=== PATIENT | female | born 1965 ===

== ENCOUNTER 2017-08-25 12:27 | Emergency (ER) | payer BC ==
[2017-08-25 12:52] VITALS: BMI 40.3
[2017-08-25 13:13] LABS: URINE APPEARANCE CLEAR (CLEAR); URINE BILIRUBIN NEGATIVE (NEGATIVE); URINE BLOOD MODERATE (NEGATIVE); URINE COLOR YELLOW (YELLOW); URINE GLUCOSE (UA) NEGATIVE (NEGATIVE); URINE LEUKOCYTE ESTERASE NEGATIVE Leu/uL (NEGATIVE); URINE NITRATE NEGATIVE (NEGATIVE); URINE PROTEIN TRACE mg/dL (<30 mg/dL); URINE UROBILINOGEN 0.2 E.U./dL (<1 E.U./dL)
[2017-08-25 13:36] LABS: URINE EPITHELIAL CELLS 0 - 2 /hpf (0-5); URINE WBC 0 - 2 /hpf (0-6)
[2017-08-25] MEDS ORDERED: Sodium Chloride 0.9% 1,000 ML IV STA (13:38)
--- NOTE | 2017-08-25 13:39 | ED PDOC ---
Arrival/HPI - General Chief Complaint: Female Genitourinary Time Seen by Provider: 08/25/17 12:55 Historian: Patient - History of Present Illness Narrative History of Present Illness (Text): 08/25/17 13:35 you were treated in the ED today for lower abdominal pain with nausea for 3 days otherwise without any vomiting/headache/dizziness/difficulty breathing/ chest pain/abdomen pain/numbness/tingling/loss of limb function/pain with urination. Time/Duration: Other (3 days) Symptom Course: Unchanged Quality: Aching Severity Level: 3 Activities at Onset: Rest Context: Sitting, Home Past Medical History - Provider Review Nursing Documentation Reviewed: Yes - Travel History Have you recently traveled outside [place] w/in the past 3 mons?: No - Past History Past History: No Previous - Infectious Disease Hx of Infectious Diseases: None - Tetanus Immunization Tetanus Immunization: Unknown - Cardiac Hx Cardiac Disorders: No Hx Pacemaker: No - Pulmonary Hx Asthma: Yes Hx Sleep Apnea: Yes - Neurological Hx Paralysis: No - Renal Hx Renal Disorder: Yes Hx Kidney Stones: Yes - Endocrine/Metabolic Hx Hypothyroidism: Yes - Hematological/Oncological Hx Blood Transfusions: Yes Hx Blood Transfusion Reaction: No - Musculoskeletal/Rheumatological Hx Musculoskeletal Disorders: Yes Hx Arthritis: Yes - Gastrointestinal Hx Constipation: Yes Hx Diarrhea: Yes - Psychiatric Hx Anxiety: Yes Hx Depression: Yes Hx Emotional Abuse: No Hx Panic Disorder: Yes Hx Physical Abuse: No Hx Substance Use: No - Surgical History Hx Section: Yes Hx Cholecystectomy: Yes Hx Orthopedic Surgery: Yes Other/Comment: Back fusion - Anesthesia Hx Anesthesia: Yes Hx Anesthesia Reactions: No Hx Malignant Hyperthermia: No - Suicidal Assessment Feels Threatened In Home Enviroment: No Family/Social History - Physician Review Nursing Documentation Reviewed: Yes Family/Social History: No Known Family HX Smoking Status: Former Smoker Hx Alcohol Use: Yes (SOCIAL) Hx Substance Use: No Hx Substance Use Treatment: No Allergies/Home Meds Allergies/Adverse Reactions: Allergies No Known Allergies Allergy (Verified 08/25/17 12:59) Home Medications: Home Meds Medication Instructions Recorded Confirmed DULoxetine [Cymbalta] 60 mg PO DAILY 11/26/12 08/25/17 Levothyroxine [Synthroid] 112 mcg PO DAILY 11/26/12 08/25/17 Montelukast [Singulair] 10 mg PO DAILY 12/19/14 08/25/17 Review of Systems - Physician Review All systems were reviewed & negative as marked: Yes - Review of Systems Respiratory: absent: SOB Cardiovascular: absent: Chest Pain Gastrointestinal: Abdominal Pain, Nausea. absent: Vomiting Genitourinary Female: absent: Dysuria Neurological: absent: Headache, Dizziness, Focal Weakness Physical Exam Vital Signs Reviewed: Yes Vital Signs Temp Pulse Resp BP Pulse Ox 08/25/17 16:00 97.8 F 80 18 147/95 H 100 08/25/17 13:30 98.2 F 97 H 18 150/92 H 100 Temperature: Afebrile Blood Pressure: Hypertensive Pulse: Regular Respiratory Rate: Normal Appearance: Positive for: Well-Appearing, Non-Toxic, Comfortable Pain Distress: None Mental Status: Positive for: Alert and Oriented X 3 - Systems Exam Head: Present: Atraumatic, Normocephalic Pupils: Present: PERRL Extroacular Muscles: Present: EOMI Conjunctiva: Present: Normal Mouth: Present: Moist Mucous Membranes Neck: Present: Normal Range of Motion Respiratory/Chest: Present: Clear to Auscultation, Good Air Exchange. No: Respiratory Distress, Accessory Muscle Use Cardiovascular: Present: Regular Rate and Rhythm, Normal S1, S2. No: Murmurs Abdomen: Present: Tenderness (Mild RUQ tenderness to palpation), Normal Bowel Sounds. No: Distention, Peritoneal Signs, Rebound, Guarding, McBurney's Point Tender, Rovsing's Sign Present, Hernias, Feeding Tubes, Ostomy Tubes, Mass/ Organomegaly, Scars, Other Back: Present: Normal Inspection Upper Extremity: Present: Normal Inspection. No: Cyanosis, Edema Lower Extremity: Present: Normal Inspection. No: Edema Neurological: Present: GCS=15, CN II-XII Intact, Speech Normal Skin: Present: Warm, Dry, Normal Color. No: Rashes Psychiatric: Present: Alert, Oriented x 3, Normal Insight, Normal Concentration Medical Decision Making ED Course and Treatment: you were treated in the ED today for lower abdominal pain with nausea for 3 days otherwise without any vomiting/headache/dizziness/difficulty breathing/ chest pain/numbness/tingling/loss of limb function/pain with urination. You had mild RUQ abdominal tenderness otherwise breathing easily, pink/moist lips, good strength/sensation, alert/oriented, walking easily, clear lungs. no fever temp 98.2, stable heart rate 97, stable breathing rate 18, excellent oxygen level 100 % room air, elevated blood pressure 150/92 which we recommend repeat in 2-3 days primary care office to determine further treatment, you have blood tests no infection count 5, stable blood level hemoglobin 13/platelets 256, stable chemistry, mildly elevated liver AST/ALT 44/63, urine test trace protein, urine test negative, radiology ct abdomen/pelvis no acute, Zofran and IV fluids given in the ED with improvement, counselled to monitor pain and thus discharged home with banquet steward. 1. Recommend follow-up primary care 2-3 days to review symptoms, referral to gastroenterology clinic to review symptoms and for mildly elevated liver tests to ensure no complications, urology clinic for protein in urine to ensure no complications. 4. If any worsening pain, fever, chills, nausea, vomiting, difficulty breathing, numbness, loss of limb function , pain with urination or any medical condition then return to the ED. 08/25/17 17:22 08/25/17 17:23 08/25/17 17:25 08/25/17 17:26 ct a/p no acute. Reassessment Condition: Improved - Lab Interpretations Lab Results: 08/25/17 13:49 08/25/17 13:49 Lab Results 08/25/17 13:49: Sodium 140, Potassium 3.7, Chloride 101, Carbon Dioxide 26, Anion Gap 17, BUN 13, Creatinine 0.7, Est GFR ( Amer) > 60, Est GFR (Non- Af Amer) > 60, Random Glucose 96, Calcium 10.4, Total Bilirubin 0.5, AST 44 H, ALT 63 H, Alkaline Phosphatase 100, Total Protein 8.2, Albumin 4.6, Globulin 3.6 , Albumin/Globulin Ratio 1.3, Lipase 21 L 08/25/17 13:49: PT 12.2, INR 1.07, APTT 31.8 08/25/17 13:49: WBC 5.7 D, RBC 4.88, Hgb 13.9, Hct 42.4, MCV 86.9, MCH 28.5, MCHC 32.8, RDW 13.3, Plt Count 256, MPV 10.5, Gran % 75.8 H, Lymph % (Auto) 16.1 L, [place] % (Auto) 6.7 H, Eos % (Auto) 0.7 L, Baso % (Auto) 0.7, Gran # 4.29 , Lymph # 0.9 L, [place] # 0.4, Eos # 0.0, Baso # 0.04 08/25/17 13:05: Urine Color Yellow, Urine Appearance Clear, Urine pH 6.0, Ur Specific [place] 1.025, Urine Protein Trace H, Urine Glucose (UA) Negative, Urine Ketones Negative, Urine Blood Moderate H, Urine Nitrate Negative, Urine Bilirubin Negative, Urine Urobilinogen 0.2, Ur Leukocyte Esterase Negative, Urine RBC 5 - 10, Urine WBC 0 - 2, Ur Epithelial Cells 0 - 2 I have reviewed the lab results: Yes - RAD Interpretation Radiology Orders: 08/25/17 14:37 ABD & PELVIS IV CONTRAST ONLY [CT] Stat Web Operations Administrator: Radiologist - Medication Orders Current Medication Orders: Discontinued Medications Sodium Chloride (Sodium Chloride 0.9%) 1,000 mls @ 1,000 mls/hr IV .Q1H STA Stop: 08/25/17 14:37 Last Admin: 08/25/17 14:03 Dose: 1,000 mls/hr eMAR Start Stop Document 08/25/17 14:03 SE (Rec: 08/25/17 14:03 SE [id number]) Intravenous Solution Start Date 08/25/17 Start Time 14:03 Ketorolac Tromethamine (Toradol) 15 mg IVP STAT STA Stop: 08/25/17 13:41 Last Admin: 08/25/17 14:03 Dose: [address] [facility] Pain Assessment Document 08/25/17 14:03 SE (Rec: 08/25/17 14:04 SE [id number]) Pain Reassessment Is this a pain reassessment? No Sleep Is patient sleeping during reassessment? No Presence of Pain Presence of Pain Yes Pain Scale Used Pain Scale Used Numeric IVP Administration Document 08/25/17 14:03 SE (Rec: 08/25/17 14:04 SE [id number]) Charges for Administration # of IVP Administrations 1 Re-Assess: [facility] Pain Assessment Document 08/25/17 15:03 SE (Rec: 08/25/17 15:46 SE [id number]) Pain Reassessment Is this a pain reassessment? Yes Sleep Is patient sleeping during reassessment? No Presence of Pain Presence of Pain Yes Pain Scale Used Pain Scale Used Numeric Ondansetron HCl (Zofran Inj) 4 mg IVP STAT STA Stop: 08/25/17 13:39 Last Admin: 08/25/17 14:04 Dose: 4 mg IVP Administration Document 08/25/17 14:04 SE (Rec: 08/25/17 14:04 SE [id number]) Charges for Administration # of IVP Administrations 1 Ondansetron HCl (Zofran Inj) 4 mg IVP STAT STA Stop: 08/25/17 16:52 Last Admin: 08/25/17 16:54 Dose: 4 mg IVP Administration Document 08/25/17 16:54 SE (Rec: 08/25/17 16:54 SE [id number]) Charges for Administration # of IVP Administrations 1 Disposition/Present on Arrival - Present on Arrival Any Indicators Present on Arrival: No History of DVT/PE: No History of Uncontrolled Diabetes: No Urinary Catheter: No History of Decub. Ulcer: No History Surgical Site Infection Following: Orthopedic Procedures - Disposition Have Diagnosis and Disposition been Completed?: Yes Diagnosis: Abdominal pain Disposition: HOME/ ROUTINE Disposition Time: 17:27 Patient Plan: Discharge Condition: IMPROVED Additional Instructions: you were treated in the ED today for lower abdominal pain with nausea for 3 days otherwise without any vomiting/headache/dizziness/difficulty breathing/ chest pain/numbness/tingling/loss of limb function/pain with urination. You had mild RUQ abdominal tenderness otherwise breathing easily, pink/moist lips, good strength/sensation, alert/oriented, walking easily, clear lungs. no fever temp 98.2, stable heart rate 97, stable breathing rate 18, excellent oxygen level 100 % room air, elevated blood pressure 150/92 which we recommend repeat in 2-3 days primary care office to determine further treatment, you have blood tests no infection count 5, stable blood level hemoglobin 13/platelets 256, stable chemistry, mildly elevated liver AST/ALT 44/63, urine test trace protein, urine test negative, radiology ct abdomen/pelvis no acute, Zofran and IV fluids given in the ED with improvement, counselled to monitor pain and thus discharged home with banquet steward. 1. Recommend follow-up primary care 2-3 days to review symptoms, referral to gastroenterology clinic to review symptoms and for mildly elevated liver tests to ensure no complications, urology clinic for protein in urine to ensure no complications. 4. If any worsening pain, fever, chills, nausea, vomiting, difficulty breathing, numbness, loss of limb function , pain with urination or any medical condition then return to the ED. Referrals: Paco Chavez MD [Primary Care Provider] - Follow up with primary Forms: [employer] (Citizen Of [place])
[2017-08-25 14:06] LABS: BASO # 0.04 K/mm3 (0.0-2.0); BASO % 0.7 % (0.0-3.0); EOS % 0.7 % (1.5-5.0); GRAN # 4.29 (1.4-6.5); GRAN % 75.8 % (50.0-68.0); HEMOGLOBIN 13.9 g/dL (12.0-16.0); LYMPH # 0.9 (1.2-3.4); LYMPH % 16.1 % (22.0-35.0); MEAN CELL VOLUME 86.9 fl (80.0-105.0); MEAN CORPUSCULAR HEMOGLOBIN 28.5 pg (25.0-35.0); MEAN CORPUSCULAR HGB CONC 32.8 g/dl (31.0-37.0); MEAN PLATELET VOLUME 10.5 fl (7.0-11.0); MONO # 0.4 (0.1-0.6); MONO % 6.7 % (1.0-6.0); RBC 4.88 10^6/uL (3.5-6.1); RED CELL DISTRIBUTION WIDTH 13.3 % (11.5-14.5); WHITE BLOOD COUNT 5.7 10^3/ul (4.5-11.0)
[2017-08-25 14:16] LABS: ALB/GLOB RATIO 1.3 (1.1-1.8); ALBUMIN 4.6 g/dL (3.0-4.8); ALT/SGPT 63 U/L (7-56); AST/SGOT 44 U/L (14-36); BLOOD UREA NITROGEN 13 mg/dL (7-21); CALCIUM 10.4 mg/dL (8.4-10.5); GFR AFRICAN-AMERICAN > 60; GFR NON-AFRICAN AMERICAN > 60; LIPASE 21 U/L (23-300)
[2017-08-25 14:29] LABS: INR 1.07 (0.93-1.08); PARTIAL THROMBOPLASTIN TIME 31.8 Seconds (25.1-36.5); PROTHROMBIN TIME 12.2 SECONDS (9.4-12.5)
[2017-08-25] MEDS ORDERED: Iohexol 350 MG/100 ML VIAL ONE (14:42)
[2017-08-25 16:01] VITALS: BP 147/95; PULSE 80; RESP 18; TEMP 97.8; O2SAT 100
--- NOTE | 2017-08-25 16:11 | CT ---
PROCEDURE: CT Abdomen and Pelvis with contrast HISTORY: 51yoF, with abdomen pain/tenderness COMPARISON: None. TECHNIQUE: Contrast dose: 100 cc of Omni 350 Radiation dose: Total exam DLP = 1587 mGy-cm. This CT exam was performed using one or more of the following dose reduction techniques: Automated exposure control, adjustment of the mA and/or kV according to patient size, and/or use of iterative reconstruction technique. FINDINGS: LOWER THORAX: Unremarkable. LIVER: Unremarkable. No gross lesion or ductal dilatation. There is fatty infiltration of the liver GALLBLADDER AND BILE DUCTS: Gallbladder removed PANCREAS: Unremarkable. No gross lesion or ductal dilatation. SPLEEN: Unremarkable. ADRENALS: Unremarkable. No mass. KIDNEYS AND URETERS: Unremarkable. No hydronephrosis. No solid mass. VASCULATURE: Unremarkable. No aortic aneurysm. BOWEL: Unremarkable. No obstruction. No gross mural thickening. APPENDIX: Normal appendix. PERITONEUM: Unremarkable. No free fluid. No free air. LYMPH NODES: Unremarkable. No enlarged lymph nodes. BLADDER: Unremarkable. REPRODUCTIVE: Unremarkable. BONES: No acute fracture.There is a fusion device replacing the L3 vertebral body. OTHER FINDINGS: None. IMPRESSION: No acute intra-abdominal findings
== END 2017-08-25 17:55 | disposition home or self-care (01) ==
LOC: ED 12:27
DX: R10.9 Unspecified abdominal pain (principal)
CPT/HCPCS: 74177; 80053; 81001; 83690; 85025; 85610; 85730; 87086; 96374; 96375; 99285; J1885; J2405; J7040; Q9967

== ENCOUNTER 2018-11-25 12:43 | Outpatient (CLI) | payer BC | END 2018-11-25 12:44 | disposition home or self-care (01) | LOC: RAD 12:44 ==